=== PATIENT | female | born 1930 | race Caucasian/White ===

== ENCOUNTER 2017-08-13 01:30 | Emergency (ER) | payer MEDICARE, OTHER ==
--- NOTE | 2017-08-13 10:37 | RAD ---
4 VIEWS RIGHT KNEE: Date: 08/13/17 COMPARISON: 07/23/10. HISTORY: Multiple falls, trauma, pain. FINDINGS: There is severe lateral compartment degenerative change with joint space narrowing, subchondral scler osis, and osteophyte formation. There is prominent patellofemoral joint space narrowing as well. No significant knee joint effusion. Bones are demineralized. There is no displaced fracture or evidence of dislocation seen. IMPRESSION: Multicompartment degenerative joint disease. No acute osseous abnormality. POS: [facility]
== END 2017-08-13 03:48 | disposition home or self-care (01) ==
LOC: ERS 01:30
DX: L03.115 Cellulitis of right lower limb (principal); K21.9 Gastro-esophageal reflux disease without esophagitis; E78.5 Hyperlipidemia, unspecified; I10 Essential (primary) hypertension; W19.XXXA Unspecified fall, initial encounter

== ENCOUNTER 2017-08-14 08:54 | Emergency (ER) | payer MEDICARE, OTHER ==
[2017-08-14] MEDS ORDERED: Acetaminophen 500 MG TAB ONE (09:22)
--- NOTE | 2017-08-14 10:01 | CT ---
CT HEAD NONCONTRAST: HISTORY: Fall. Head injury. COMPARISON: 07/23/10. FINDINGS: There is no evidence of acute intracranial hemorrhage or infarct. Diffuse cortical atrophy and chron ic ischemic small-vessel disease are again demonstrated. There is no mass effect or shift of midline structures. Visualized paranasal sinuses remain well aerated with postoperative changes apparent. IMPRESSION: No acute intracranial abnormalities are demonstrated. POS: [facility]
--- NOTE | 2017-08-14 10:15 | CT ---
CT CERVICAL SPINE NONCONTRAST: HISTORY: Fall. Neck injury. FINDINGS: Vertebral body heights are maintained. Multilevel disk space narrowing, osteophytosis, and gas-disk phenomenon, and mild degenerative spondylolistheses are similar in appearance to the previous exam. Cervicothoracic junction is intact. No acute fracture or dislocation. Prominent calcification in th e arterial structures. IMPRESSION: 1. Cervical spondylosis. No acute osseous abnormalities are demonstrated. 2. Atherosclerosis. POS: [facility]
--- NOTE | 2017-08-14 10:19 | CT ---
NONCONTRAST CT THORACIC SPINE: DATE: 08/14/17. HISTORY: The patient tripped and fell while using a walker. The patient complains of back pain and neck pain. FINDINGS: The vertebral body heights are within normal limits. No fracture or subluxation is seen involving th e thoracic spine. There are mild multilevel degenerative changes seen in the thoracic spine. No intradural or extradural defect is appreciated. There is no significant narrowing of the central spinal canal or neural foramina. Vascular calcifications are seen in the thoracic aorta as well as involving the origins of the great vessels. There is mild dependent atelectasis at each lung base. The visualized lungs are otherwise clear. Paravertebral soft tissues are within normal limits. IMPRESSION: 1. Mild degenerative changes in the thoracic spine, but no fracture or subluxation is seen. 2. Small hiatal hernia. 3. Prominent vascular calcifications. POS: [facility]
--- NOTE | 2017-08-14 10:21 | RAD ---
PORTABLE AP CHEST XRAY: DATE: 08/14/17. HISTORY: Trauma. The patient tripped and fell while using a walker. Pain to right shoulder, head, and back o f neck. COMPARISON: 12/14/16. FINDINGS: Cardiac silhouette is mildly enlarged. The pulmonary vasculature is within normal limits. Lungs are clear. Vascular calcifications are seen in the thoracic aorta and do appear more prominent than on the prior exam. There is a linear density overlying the lateral left lung which has the appearance m ost suggestive of a skin fold. Osteopenia is present. No definite fracture is visualized. IMPRESSION: 1. No acute cardiopulmonary process. 2. Mild cardiomegaly. Osteopenia. No obvious fracture is appreciated. POS: [facility]
--- NOTE | 2017-08-14 10:25 | RAD ---
THREE VIEWS RIGHT SHOULDER: THREE VIEWS RIGHT SHOULDER: DATE: 08/14/17. HISTORY: Right shoulder pain after a fall. FINDINGS: Coracoclavicular and acromioclavicular distances are within normal limits. No fracture or dislocatio n is present. Vascular calcification is seen in the thoracic aorta. No other findings. IMPRESSION: No acute osseous abnormality is seen involving the right shoulder. POS: [facility]
--- NOTE | 2017-08-14 10:28 | CT ---
CT LUMBAR SPINE NONCONTRAST: HISTORY: Low back injury. Fall. FINDINGS: There are 5 lumbar-type vertebrae. Leftward convex rotatory scoliotic curvature is apparent. There is disk space narrowing and gas-disk phenomenon at each level with a moderate degree of osteophytosis . Foraminal stenoses are greatest at the L4-5 level where posterior operative decompression is also apparent. Subtle end plate compression at the L4 level is apparent with a Schmorl's node posteriorly . No acute fractures are evident. There is prominent calcification throughout the arterial structures. IMPRESSION: 1. Prominent lumbar spondylosis. Postoperative changes. No acute fractures are apparent. 2. Atherosclerosis. POS: [facility]
== END 2017-08-14 11:00 | disposition home or self-care (01) ==
LOC: ERS 08:54
DX: M25.511 Pain in right shoulder (principal); K21.9 Gastro-esophageal reflux disease without esophagitis; E78.5 Hyperlipidemia, unspecified; E78.00 Pure hypercholesterolemia, unspecified; I10 Essential (primary) hypertension; F03.90 Unspecified dementia, unspecified severity, without behavioral disturbance, psychotic disturbance, mood disturbance, and anxiety; Z79.82 Long term (current) use of aspirin; Z79.899 Other long term (current) drug therapy; W01.0XXA Fall on same level from slipping, tripping and stumbling without subsequent striking against object, initial encounter
CPT/HCPCS: 70450; 71045; 72125; 72128; 72131; 93005

== ENCOUNTER 2017-08-22 06:26 | Emergency (ER) | payer MEDICARE ==
[2017-08-22 07:39] LABS: Bilirubin Negative (Negative); Blood, Urine Negative (Negative); Clarity CLOUDY (Clear); Glucose, Urine (Dipstick) Negative (Negative); Leukocyte Moderate (Negative); Nitrite Positive (Negative); Protein, Urine (Dipstick) Negative (Neg-Trace); Specific Gravity, Urine 1.012 (1.002-1.036); Urobilinogen 0.2 mg/dL (0.2-1.0); pH, Urine 7.5 (5.0-9.0)
[2017-08-22 07:41] LABS: Bacteria/HPF 4+ HPF (None Seen); Hyaline Casts/LPF 4-6 HYALINE CAST LPF (0-3 Hyaline); Pathc Cast-AUWi Flag 0.58 (0-2.49); RBC/HPF 0-3 HPF (0-3); Squamous Epithelial 0-3 HPF (0-3)
--- NOTE | 2017-08-22 07:41 | CT ---
CT BRAIN WITHOUT CONTRAST: Date: 08/22/17 HISTORY: Fall. Dizziness. FINDINGS: Comparison made with exam of 08/13/17. Changes of cortical atrophy and chronic small vessel ischemic disease are again seen. The ventricular size is stable and the basilar cisterns are patent. No evidence of acute infarct, hemorrhage, midlin e shift, or abnormal extra-axial fluid collections are seen. The bony calvarium is intact. Visualized paranasal sinuses are well aerated with postoperative changes. IMPRESSION: Stable exam. No CT evidence of acute intracranial process. POS: [facility]
[2017-08-22 08:12] LABS: #Eosinphils 0.1 thou/uL (0.0-0.7); #Lymphocytes 1.7 thou/uL (1.20-3.40); #Monocytes 0.4 thou/uL (0.11-0.59); #Neutrophils 4.7 thou/uL (1.40-6.50); %Basophils 0.4 % (0.0-1.0); %Eosinophils 0.9 % (0.0-10.0); %Lymphocytes 24.1 % (21.0-51.0); %Monocytes 6.4 % (0.0-10.0); %Neutrophils 68.3 % (42.0-75.0); Hemoglobin 15.3 g/dL (12.0-16.0); Mean Corpuscular HGB CONC 33.6 g/dL (32.0-36.0); Mean Corpuscular Hemoglobin 31.9 pg (27.0-31.0); Mean Platelet Volume 8.6 fL (7.4-10.4); Platelet Count 214 thou/uL (130-400); RBC Distribution Width 12.5 % (11.5-14.5)
--- NOTE | 2017-08-22 08:20 | RAD ---
RIGHT KNEE FOUR VIEWS: History: 87-year-old female with history of right knee pain following a fall from trauma. Dizziness. FINDINGS: Degenerative changes involving all three compartments of the knee. No fracture or dislocation. IMPRESSION: Tricompartment degenerative changes without fracture or dislocation. POS: [facility]
[2017-08-22 08:32] LABS: ALT (SGPT) 13 U/L (8-55); AST (SGOT) 17 U/L (5-34); Albumin 4.4 g/dL (3.4-4.8); Alkaline Phosphatase 84 U/L (40-150); Anion Gap 16 mmol/L (10-20); BUN (Urea Nitrogen) 16 mg/dL (9.8-20.1); Bilirubin, Total 1.3 mg/dL (0.2-1.2); Calc. Creatinine Clearance 0 mL/min (70-130); Calcium 9.6 mg/dL (7.8-10.44); Carbon Dioxide 22 mmol/L (23-31); Chloride 105 mmol/L (98-107); Estimated GFR-MDRD 71; Globulin 2.7 g/dL (2.4-3.5); Glucose 143 mg/dL (83-110); Potassium 3.6 mmol/L (3.5-5.1); Protein, Total 7.1 g/dL (6.0-8.3); Sodium 139 mmol/L (136-145)
--- NOTE | 2017-08-22 08:35 | RAD ---
LEFT KNEE FOUR VIEWS: History: 87-year-old female with history of fall, injury from trauma. Bilateral knee pain and weakness. FINDINGS: There are mild degenerative changes. No fracture or dislocation apparent. IMPRESSION: NO fracture or dislocation. POS: [facility]
--- NOTE | 2017-08-22 08:35 | RAD ---
PORTABLE CHEST 1 VIEW: Date: 08/22/17 Time: 0727 hours HISTORY: Fall. Dizziness. Chest pain. FINDINGS: Comparison made with exam of 08/14/17. The heart size is normal. The aorta is tortuous. Lungs are expanded without focal areas of consolida tion, pneumothoraces, or pleural effusions. IMPRESSION: No acute process. POS: [facility]
[2017-08-22 08:46] LABS: CKMB 2.5 ng/mL (0-6.6); Troponin I Less than 0.010 ng/mL (< 0.028)
== END 2017-08-22 09:35 | disposition home or self-care (01) ==
LOC: ERS 06:26
DX: S80.02XA Contusion of left knee, initial encounter (principal); S80.01XA Contusion of right knee, initial encounter; N39.0 Urinary tract infection, site not specified; R42 Dizziness and giddiness; K21.9 Gastro-esophageal reflux disease without esophagitis; E78.5 Hyperlipidemia, unspecified; I10 Essential (primary) hypertension; F03.90 Unspecified dementia, unspecified severity, without behavioral disturbance, psychotic disturbance, mood disturbance, and anxiety; Z79.82 Long term (current) use of aspirin; Z79.899 Other long term (current) drug therapy
CPT/HCPCS: 70450; 71045; 80053; 81003; 81015; 82553; 84484; 85025; 93005; 96374; J0696

== ENCOUNTER 2017-10-07 19:20 | Emergency (ER) | payer MEDICARE ==
[2017-10-07 20:37] LABS: Bilirubin Negative (Negative); Blood, Urine Negative (Negative); Clarity CLEAR (Clear); Glucose, Urine (Dipstick) Negative (Negative); Leukocyte Small (Negative); Nitrite Negative (Negative); Protein, Urine (Dipstick) Negative (Neg-Trace); Urobilinogen 0.2 mg/dL (0.2-1.0); pH, Urine 6.5 (5.0-9.0)
[2017-10-07 20:38] LABS: Bacteria/HPF None Seen HPF (None Seen); Hyaline Casts/LPF 0-3 HYALINE CAST LPF (0-3 Hyaline); Pathc Cast-AUWi Flag 0.58 (0-2.49); RBC/HPF None Seen HPF (0-3); Squamous Epithelial 0-3 HPF (0-3)
[2017-10-07 20:45] LABS: #Eosinphils 0.1 thou/uL (0.0-0.7); #Lymphocytes 2.1 thou/uL (1.20-3.40); #Monocytes 0.6 thou/uL (0.11-0.59); %Basophils 0.6 % (0.0-1.0); %Eosinophils 1.7 % (0.0-10.0); %Lymphocytes 30.1 % (21.0-51.0); %Monocytes 9.2 % (0.0-10.0); %Neutrophils 58.4 % (42.0-75.0); Hemoglobin 14.6 g/dL (12.0-16.0); Mean Corpuscular HGB CONC 34.4 g/dL (32.0-36.0); Mean Corpuscular Hemoglobin 32.5 pg (27.0-31.0); Mean Corpuscular Volume 94.4 fl (81.0-99.0); Platelet Count 186 thou/uL (130-400); RBC Distribution Width 12.3 % (11.5-14.5); Red Blood Cell (RBC) Count 4.48 mill/uL (4.20-5.40); White Blood Cell (WBC) Count 6.9 thou/uL (4.8-10.8)
[2017-10-07 20:54] LABS: ALT (SGPT) 16 U/L (8-55); AST (SGOT) 23 U/L (5-34); Albumin 4.1 g/dL (3.4-4.8); Alkaline Phosphatase 73 U/L (40-150); Anion Gap 13 mmol/L (10-20); BUN (Urea Nitrogen) 19 mg/dL (9.8-20.1); Calc. Creatinine Clearance 0 mL/min (70-130); Calcium 9.7 mg/dL (7.8-10.44); Carbon Dioxide 26 mmol/L (23-31); Chloride 103 mmol/L (98-107); Estimated GFR-MDRD 60; Globulin 2.5 g/dL (2.4-3.5); Glucose 132 mg/dL (83-110); Potassium 3.4 mmol/L (3.5-5.1); Protein, Total 6.6 g/dL (6.0-8.3); Sodium 139 mmol/L (136-145)
--- NOTE | 2017-10-07 21:35 | CT ---
HEAD CT WITHOUT CONTRAST 10/07/17 COMPARISON: None. HISTORY: Headaches and altered mental status. TECHNIQUE: Serial axial CT imaging at 5 mm intervals from vertex through skull base without contrast. FINDINGS: Imaged paranasal sinuses and mastoid air cells are clear. There is evidence of prior bilateral ethmoi dectomy. There is mild diffuse cerebral volume loss. There is extensive periventricular white matter hypodensity, evidence of significant stable small vessel disease. No intracranial hemorrhage, midline shift or mass effect. IMPRESSION: Chronic findings as above. No acute findings are seen. POS: [facility]
== END 2017-10-07 22:53 | disposition home or self-care (01) ==
LOC: ERS 19:20
DX: N39.0 Urinary tract infection, site not specified (principal); R19.7 Diarrhea, unspecified; K21.9 Gastro-esophageal reflux disease without esophagitis; E78.5 Hyperlipidemia, unspecified; I10 Essential (primary) hypertension; F03.90 Unspecified dementia, unspecified severity, without behavioral disturbance, psychotic disturbance, mood disturbance, and anxiety; Z79.82 Long term (current) use of aspirin; Z79.899 Other long term (current) drug therapy
CPT/HCPCS: 36415; 70450; 80053; 81003; 81015; 82274; 85025; 87086

== ENCOUNTER 2017-10-26 09:15 | Emergency (ER) | payer MEDICARE ==
[2017-10-26] MEDS ORDERED: Lisinopril 10 MG TAB ONE (10:30)
[2017-10-26] MEDS ORDERED: Hydrochlorothiazide 25 MG TAB PO SCH (10:45)
[2017-10-26 10:46] LABS: Bilirubin Negative (Negative); Blood, Urine Negative (Negative); Clarity CLOUDY (Clear); Glucose, Urine (Dipstick) Negative (Negative); Leukocyte Trace (Negative); Nitrite Negative (Negative); Protein, Urine (Dipstick) Negative (Neg-Trace); Specific Gravity, Urine 1.013 (1.002-1.036); Urobilinogen 0.2 mg/dL (0.2-1.0)
[2017-10-26 10:48] LABS: Bacteria/HPF None Seen HPF (None Seen); Hyaline Casts/LPF 0-3 HYALINE CAST LPF (0-3 Hyaline); Pathc Cast-AUWi Flag 0.14 (0-2.49); Squamous Epithelial 0-3 HPF (0-3); WBC/HPF 0-3 HPF (0-3)
--- NOTE | 2017-10-26 11:00 | CT ---
CT OF THE BRAIN WITHOUT CONTRAST: Date: 10/26/17 COMPARISON: 10/07/17. HISTORY: Altered mental status. TECHNIQUE: Multiple contiguous axial images were obtained in a CT of the brain without contrast. FINDINGS: There are scattered hypodensities in the subcortical and periventricular white matter, likely seconda ry to small vessel ischemic disease. No large confluent infarction is seen. There is no evidence of h ydrocephalus, intracranial hemorrhage, or extra-axial fluid collection. The calvarium and overlying soft tissues are unremarkable. The visualized paranasal sinuses and masto id air cells are well aerated. IMPRESSION: No evidence of acute intracranial abnormality. POS: [facility]
[2017-10-26 12:37] LABS: #Eosinphils 0.3 thou/uL (0.0-0.7); #Lymphocytes 2.3 thou/uL (1.20-3.40); #Monocytes 0.9 thou/uL (0.11-0.59); #Neutrophils 6.7 thou/uL (1.40-6.50); %Basophils 0.3 % (0.0-1.0); %Eosinophils 2.7 % (0.0-10.0); %Lymphocytes 22.8 % (21.0-51.0); %Monocytes 8.5 % (0.0-10.0); %Neutrophils 65.7 % (42.0-75.0); Hemoglobin 16.2 g/dL (12.0-16.0); Mean Corpuscular HGB CONC 32.5 g/dL (32.0-36.0); Mean Corpuscular Hemoglobin 30.5 pg (27.0-31.0); Mean Corpuscular Volume 93.9 fL (78.0-98.0); Platelet Count 173 thou/uL (130-400); RBC Distribution Width 12.2 % (11.5-14.5); White Blood Cell (WBC) Count 10.2 thou/uL (4.8-10.8)
[2017-10-26 12:58] LABS: ALT (SGPT) 27 U/L (8-55); AST (SGOT) 28 U/L (5-34); Albumin 4.4 g/dL (3.4-4.8); Alkaline Phosphatase 106 U/L (40-150); Anion Gap 16 mmol/L (10-20); BUN (Urea Nitrogen) 14 mg/dL (9.8-20.1); Bilirubin, Total 1.9 mg/dL (0.2-1.2); CK (CPK) 131 U/L (29-168); Calc. Creatinine Clearance 0 mL/min (70-130); Calcium 9.9 mg/dL (7.8-10.44); Carbon Dioxide 23 mmol/L (23-31); Chloride 103 mmol/L (98-107); Estimated GFR-MDRD 74; Globulin 2.9 g/dL (2.4-3.5); Glucose 118 mg/dL (83-110); Potassium 3.4 mmol/L (3.5-5.1); Protein, Total 7.3 g/dL (6.0-8.3); Sodium 139 mmol/L (136-145)
--- NOTE | 2017-10-28 14:24 | EKG ---
Test Reason : Blood Pressure : / mmHG Vent. Rate : 066 BPM Atrial Rate : 066 BPM P-R Int : 164 ms QRS Dur : 082 ms QT Int : 432 ms P-R-T Axes : 054 -17 044 degrees QTc Int : 452 ms Normal sinus rhythm Normal ECG Confirmed by PAUL BRICE ([id number]), news editor KRISTIE WERNER ([id number]) on 10/28/2017 2:24:17 PM Referred By: Confirmed By:PAUL BRICE
== END 2017-10-26 15:58 | disposition home or self-care (01) ==
LOC: ERS 09:15
DX: F03.90 Unspecified dementia, unspecified severity, without behavioral disturbance, psychotic disturbance, mood disturbance, and anxiety (principal); R42 Dizziness and giddiness; M79.604 Pain in right leg; M79.605 Pain in left leg; K21.9 Gastro-esophageal reflux disease without esophagitis; I10 Essential (primary) hypertension; E78.5 Hyperlipidemia, unspecified; Z79.82 Long term (current) use of aspirin; Z79.899 Other long term (current) drug therapy
CPT/HCPCS: 36415; 70450; 80053; 81003; 81015; 82550; 85025; 93005

== ENCOUNTER 2017-11-01 21:54 | Emergency (ER) | payer MEDICARE ==
[2017-11-01 22:34] LABS: Bilirubin Negative (Negative); Blood, Urine Negative (Negative); Clarity CLEAR (Clear); Glucose, Urine (Dipstick) Negative (Negative); Leukocyte Moderate (Negative); Nitrite Negative (Negative); Protein, Urine (Dipstick) Negative (Neg-Trace); Specific Gravity, Urine 1.003 (1.002-1.036); pH, Urine 7.5 (5.0-9.0)
[2017-11-01 22:36] LABS: Bacteria/HPF None Seen HPF (None Seen); Hyaline Casts/LPF 0-3 HYALINE CAST LPF (0-3 Hyaline); RBC/HPF 0-3 HPF (0-3); Squamous Epithelial 0-3 HPF (0-3); WBC/HPF 0-3 HPF (0-3)
== END 2017-11-02 00:16 ==
LOC: ERS 21:54
DX: I10 Essential (primary) hypertension (principal); K21.9 Gastro-esophageal reflux disease without esophagitis; E78.5 Hyperlipidemia, unspecified; F03.90 Unspecified dementia, unspecified severity, without behavioral disturbance, psychotic disturbance, mood disturbance, and anxiety; Z79.82 Long term (current) use of aspirin; Z79.899 Other long term (current) drug therapy
CPT/HCPCS: 81003; 81015; 99285

== ENCOUNTER 2017-12-24 19:50 | Emergency (ER) | payer MEDICARE ==
[2017-12-24 20:55] LABS: #Basophils 0.1 thou/uL (0.0-0.2); #Eosinphils 0.1 thou/uL (0.0-0.7); #Lymphocytes 2.3 thou/uL (1.20-3.40); #Monocytes 0.7 thou/uL (0.11-0.59); #Neutrophils 8.1 thou/uL (1.40-6.50); %Basophils 0.6 % (0.0-1.0); %Eosinophils 0.8 % (0.0-10.0); %Lymphocytes 20.7 % (21.0-51.0); %Monocytes 6.5 % (0.0-10.0); %Neutrophils 71.4 % (42.0-75.0); Hemoglobin 13.4 g/dL (12.0-16.0); Mean Corpuscular HGB CONC 35.1 g/dL (32.0-36.0); Mean Platelet Volume 8.9 fL (7.4-10.4); Platelet Count 179 thou/uL (130-400); RBC Distribution Width 12.6 % (11.5-14.5); Red Blood Cell (RBC) Count 4.05 mill/uL (4.20-5.40); White Blood Cell (WBC) Count 11.3 thou/uL (4.8-10.8)
[2017-12-24 21:02] LABS: Bilirubin Negative (Negative); Blood, Urine Trace (Negative); Clarity CLOUDY (Clear); Glucose, Urine (Dipstick) Negative (Negative); Leukocyte Large (Negative); Nitrite Negative (Negative); Protein, Urine (Dipstick) Negative (Neg-Trace); Specific Gravity, Urine 1.011 (1.002-1.036); Urobilinogen 0.2 mg/dL (0.2-1.0); pH, Urine 7.5 (5.0-9.0)
[2017-12-24 21:04] LABS: Bacteria/HPF None Seen HPF (None Seen)
[2017-12-24 21:11] LABS: WBC/HPF 21-50 HPF (0-3); Yeast-All Forms None Seen HPF (None Seen)
[2017-12-24 21:12] LABS: Hyaline Casts/LPF 0-3 HYALINE CAST LPF (0-3 Hyaline)
[2017-12-24 21:17] LABS: ALT (SGPT) 28 U/L (8-55); AST (SGOT) 24 U/L (5-34); Alkaline Phosphatase 80 U/L (40-150); Anion Gap 12 mmol/L (10-20); BUN (Urea Nitrogen) 15 mg/dL (9.8-20.1); Bilirubin, Total 1.6 mg/dL (0.2-1.2); Calc. Creatinine Clearance 0 mL/min (70-130); Calcium 9.6 mg/dL (7.8-10.44); Carbon Dioxide 26 mmol/L (23-31); Chloride 102 mmol/L (98-107); Estimated GFR-MDRD 61; Globulin 2.6 g/dL (2.4-3.5); Glucose 147 mg/dL (83-110); Magnesium 2.2 mg/dL (1.6-2.6); Potassium 3.1 mmol/L (3.5-5.1); Protein, Total 6.6 g/dL (6.0-8.3); Sodium 137 mmol/L (136-145)
== END 2017-12-24 22:29 | disposition home or self-care (01) ==
LOC: ERS 19:50
DX: R19.7 Diarrhea, unspecified (principal); N39.0 Urinary tract infection, site not specified; K21.9 Gastro-esophageal reflux disease without esophagitis; E78.5 Hyperlipidemia, unspecified; I10 Essential (primary) hypertension; F03.90 Unspecified dementia, unspecified severity, without behavioral disturbance, psychotic disturbance, mood disturbance, and anxiety; Z79.82 Long term (current) use of aspirin; Z79.899 Other long term (current) drug therapy
CPT/HCPCS: 80053; 81003; 81015; 83735; 85025; 87086; 96360

== ENCOUNTER 2018-05-24 18:22 | Observation (INO) | payer MEDICARE ==
[2018-05-24] MEDS ORDERED: Nitroglycerin 2% Ointment 1 INCH/1 GM Packet ONE (18:51)
[2018-05-24 19:27] LABS: #Basophils 0.1 thou/uL (0.0-0.2); #Eosinphils 0.3 thou/uL (0.0-0.7); #Lymphocytes 3.3 thou/uL (1.20-3.40); #Monocytes 0.8 thou/uL (0.11-0.59); %Basophils 1.3 % (0.0-1.0); %Eosinophils 3.6 % (0.0-10.0); %Lymphocytes 44.2 % (21.0-51.0); %Monocytes 10.7 % (0.0-10.0); %Neutrophils 40.2 % (42.0-75.0); Hemoglobin 14.2 g/dL (12.0-16.0); Mean Corpuscular HGB CONC 33.4 g/dL (32.0-36.0); Mean Corpuscular Hemoglobin 32.1 pg (27.0-31.0); Mean Corpuscular Volume 96.3 fL (78.0-98.0); Platelet Count 214 thou/uL (130-400); RBC Distribution Width 12.5 % (11.5-14.5); Red Blood Cell (RBC) Count 4.43 mill/uL (4.20-5.40); White Blood Cell (WBC) Count 7.5 thou/uL (4.8-10.8)
[2018-05-24 19:46] LABS: ALT (SGPT) 24 U/L (8-55); AST (SGOT) 28 U/L (5-34); Albumin 4.3 g/dL (3.4-4.8); Alkaline Phosphatase 56 U/L (40-150); Anion Gap 14 mmol/L (10-20); BUN (Urea Nitrogen) 18 mg/dL (9.8-20.1); Bilirubin, Total 1.2 mg/dL (0.2-1.2); CK (CPK) 134 U/L (29-168); Calc. Creatinine Clearance 0 mL/min (70-130); Calcium 10.1 mg/dL (7.8-10.44); Carbon Dioxide 27 mmol/L (23-31); Chloride 101 mmol/L (98-107); Estimated GFR-MDRD 49; Globulin 2.6 g/dL (2.4-3.5); Glucose 134 mg/dL (83-110); Lipase 30 U/L (8-78); Potassium 3.2 mmol/L (3.5-5.1); Protein, Total 6.9 g/dL (6.0-8.3); Sodium 139 mmol/L (136-145)
--- NOTE | 2018-05-24 19:46 | RAD ---
FRONTAL VIEW CHEST: 05/24/18 COMPARISON: 08/22/17. INDICATION: Chest pain. FINDINGS: No evidence of consolidation, effusion or pneumothorax. The cardiac silhouette is accentuated by port able technique. There is vascular calcification. Leads overlie the chest limiting visualization. IMPRESSION: No focal consolidation. POS: [facility]
--- NOTE | 2018-05-24 20:07 | PDOC.FPRHP ---
- History of Present Illness Chief Complaint: Chest pain History of Present Illness: 87 yo F in assisted living with PMH of CAD with stent placed in 2007 presents for L sided chest pain that started around 10 AM this morning. Patient reports pain is like pressure, left sided, non-radiating. Pain is exertional, started when she was walking down the hallway to dinner and has resolved with rest, ASA , and nitro paste. Associated with nausea and diaphoresis. Patient has had a recent viral URI with some lingering symptoms of cough and sore throat. On exam , patient has reproducible tenderness over left breast, but patient reports this pain is different from the pain she had earlier. Patient received nitropaste, ASA 324 in ambulance. CXR normal, initial trop negative. EKG showed NSR. - Allergies/Adverse Reactions Allergies Allergy/AdvReac Type Severity Reaction Status Date / Time codeine Allergy Verified 05/24/18 22:08 onion Allergy Verified 05/24/18 22:35 - Home Medications Medication Instructions Recorded Confirmed Type Levothyroxine Sodium 25 mcg PO DAILY 12/14/16 05/24/18 History Oxybutynin ER [Ditropan XL] 5 mg PO BID 12/14/16 05/24/18 History Pantoprazole Sodium 40 mg PO BID 12/14/16 05/24/18 History Atorvastatin Calcium [Lipitor] 40 mg PO HS #30 tab 12/15/16 05/24/18 Rx Aspirin Chewable 81 mg PO DAILY 05/24/18 05/24/18 History Escitalopram Oxalate [Lexapro] 10 mg PO DAILY 05/24/18 05/24/18 History Hydrochlorothiazide 50 mg PO DAILY 05/24/18 05/24/18 History Ibuprofen 600 mg PO TID PRN 05/24/18 05/24/18 History Lisinopril [Zestril] 30 mg PO DAILY 05/24/18 05/24/18 History Loperamide HCl [Imodium A-D] 2 mg PO PRN PRN 05/24/18 05/24/18 History Multivitamin [One Daily 1 tab PO DAILY 05/24/18 05/24/18 History Multivitamin] Ondansetron HCl [Zofran] 4 mg PO DAILY 05/24/18 05/24/18 History clonazePAM [Klonopin] 0.5 mg PO HS PRN 05/24/18 05/24/18 History hydrALAZINE [Apresoline] 25 mg PO Q8H PRN 05/24/18 05/24/18 History - History PMHx: dementia, CAD s/p stent placement, HTN, hypothyroidism, Gerd, depression, urge incontinence, constipation PSHx: Cardiac stent in 2007, ankle surgery bilat, hysterectomy and oopherectomy , appendectomy as a child, back surgery, cataract surgery FHx: non contributory Social: Denies tobacco or illicit drug use. Very occasional alcohol use. Patient lives in an assisted living home. - Review of Systems General: denies: fever/chills, weight/appetite/sleep changes Eyes: denies: eye pain, vision changes ENT: reports: rhinorrhea, other (sore throat). denies: nasal congestion Respiratory: reports: cough. denies: congestion, shortness of breath Cardiovascular: reports: chest pain, edema (ankles). denies: palpitation Gastrointestinal: reports: nausea, constipation, abdominal pain. denies: vomiting, diarrhea, GI bleeding Genitourinary: reports: incontinence. denies: dysuria Skin: denies: rashes, lesions Musculoskeletal: denies: tenderness, swelling Neurological: reports: numbness (bilateral feet, not new). 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, patient reports previous history of cataract surgery), MMM, oropharynx clear, other ( hearing impaired) Neck: supple, other (+LAD) Chest: no lesions, other (Tender to palpation over sternum and left breast, reproducible) Heart: RRR, normal S1/S2, no murmurs/rubs/gallops, pulses present, no edema Lungs: CTAB, no respiratory distress, good air movement Abdomen: soft, non-tender, bowel sounds present, no masses/distention Musculoskeletal: normal structure, normal tone Neurological: no focal deficit, CN II-XII intact Skin: no rash/lesions, good turgor Heme/Lymphatic: no unusual bruising or bleeding, no purpura Psychiatric: normal mood and affect, good judgment and insight, other (fairly good memory) FMR H&P: Results - Labs Result Diagrams: 05/24/18 19:16 05/24/18 19:16 Lab results: WBC 7.5 thou/uL (4.8-10.8) 05/24/18 19:16 Hgb 14.2 g/dL (12.0-16.0) 05/24/18 19:16 Hct 42.6 % (36.0-47.0) 05/24/18 19:16 MCV 96.3 fL (78.0-98.0) 05/24/18 19:16 Plt Count 214 thou/uL (130-400) 05/24/18 19:16 Neutrophils % 40.2 % (42.0-75.0) L 05/24/18 19:16 Sodium 139 mmol/L (136-145) 05/24/18 19:16 Potassium 3.2 mmol/L (3.5-5.1) L 05/24/18 19:16 Chloride 101 mmol/L (98-107) 05/24/18 19:16 Carbon Dioxide 27 mmol/L (23-31) 05/24/18 19:16 BUN 18 mg/dL (9.8-20.1) 05/24/18 19:16 Creatinine 1.06 mg/dL (0.6-1.1) 05/24/18 19:16 Glucose 134 mg/dL (83-110) H 05/24/18 19:16 Calcium 10.1 mg/dL (7.8-10.44) 05/24/18 19:16 Total Bilirubin 1.2 mg/dL (0.2-1.2) 05/24/18 19:16 AST 28 U/L (5-34) 05/24/18 19:16 ALT 24 U/L (8-55) 05/24/18 19:16 Alkaline Phosphatase 56 U/L (40-150) 05/24/18 19:16 Creatine Kinase 134 U/L (29-168) 05/24/18 19:16 Serum Total Protein 6.9 g/dL (6.0-8.3) 05/24/18 19:16 Albumin 4.3 g/dL (3.4-4.8) 05/24/18 19:16 Lipase 30 U/L (8-78) 05/24/18 19:16 - EKG Interpretation EKG: EKG NSR - Radiology Interpretation Chest x-ray Additional comment: Normal FMR H&P: A/P - Problem List (1) Chest pain Current Visit: Yes Status: Acute Code(s): R07.9 - CHEST PAIN, UNSPECIFIED (2) CAD (coronary artery disease) Current Visit: Yes Status: Chronic Code(s): I25.10 - ATHSCL HEART DISEASE OF [place] CORONARY ARTERY W/O ANG PCTRS (3) Hypokalemia Current Visit: Yes Status: Acute Code(s): E87.6 - HYPOKALEMIA (4) GERD (gastroesophageal reflux disease) Current Visit: Yes Status: Chronic Code(s): K21.9 - GASTRO-ESOPHAGEAL REFLUX DISEASE WITHOUT ESOPHAGITIS (5) Dementia Current Visit: Yes Status: Chronic Code(s): F03.90 - UNSPECIFIED DEMENTIA WITHOUT BEHAVIORAL DISTURBANCE (6) Depression Current Visit: Yes Status: Chronic Code(s): F32.9 - MAJOR DEPRESSIVE DISORDER, SINGLE EPISODE, UNSPECIFIED (7) HTN (hypertension) Current Visit: Yes Status: Chronic Code(s): I10 - ESSENTIAL (PRIMARY) HYPERTENSION (8) Hypothyroidism Current Visit: Yes Status: Chronic Code(s): E03.9 - HYPOTHYROIDISM, UNSPECIFIED (9) Urge incontinence Current Visit: Yes Status: Chronic Code(s): N39.41 - URGE INCONTINENCE (10) Constipation Current Visit: Yes Status: Chronic Code(s): K59.00 - CONSTIPATION, UNSPECIFIED - Plan Typical chest pain, ACS r/o -ACS vs GERD vs anxiety vs costochodritis -Exertional, improved with nitro/ASA, substernal and left sided pressure; has reproducible pain however states that is a different pain from what she felt earlier -Heart score of 6 -Hx of previous stent placement -Trop negx1, CXR and EKG WNL -Stress test in AM -hold any beta blockers, NPO @ midnight -Continue to monitor vitals Hypokalemia -Monitor and replace as needed GERD Dementia -continue home meds Depression -continue home meds HTN -Continue home meds, any beta blockers held Hypothyroidism -continue levothyroxine Urge incontinence -continue oxybutynin Constipation -added PRN constipation meds DVT Ppx: lovenox Diet: NPO @ midnight Code status: DNAR FMR H&P: Upper Level - Pertinent history Rizwana Sage is an 87 year old female with a history of CAD who presents to the ED with intermittent substernal squeezing pain associated with nausea. Pt states that her pain feels like heartburn. She denies dyspnea, radiation, and exertional component to her pain. She states that this pain has been ongoing for a long time, but she was unable to quantify how long exactly. She states that this pain has been improved with Tums. - Pertinent findings Vitals: BP: 162/71 P: 85 RR:20 T: 98.1 O2: 97% on RA Exam: General: alert and oriented x 3 Heart: RRR, no murmurs, rubs, or gallops; reproducible chest wall tenderness to palpation Lungs: clear to auscultation bilaterally. Trops negative x 1 EKG - NSR, with no evidence of ischemia - Plan Date/Time: 05/24/182006 I, Ashwini Amaya, have evaluated this patient and agree with findings/plan as outlined by development intern resident. Pertinent changes/additions are listed here. Chest pain, ACS rule out - will admit pt to telemetry for observation. - chest pain sounds atypical in nature (GERD or MSK), but given pt's past history of CAD and heart score of 4, will perform pharm stress test. - will trend troponins. - NPO after midnight. - Nitro prn. - ASA, statin GERD - resume home meds Dementia - resume home meds. Hypertension - resume home meds Depression - resume home meds Disposition: stable, no likely greater than 2 midnights. DVT ppx: Lovenox Addendum - Attending - Attending Attestation Date/Time: 05/25/18 0101 I personally evaluated the patient and discussed the management with Dr. Sneed I agree with the History, Examination, Assessment and Plan documented above with any addition or exceptions noted below.Admit r/o ACS plan stress test in am she is stable currently and chest pain free note prior PTCA with Stent to LAD in 2008 Dr Ford here at [facility].
[2018-05-24] MEDS ORDERED: hydrALAZINE 20 MG/ML VIAL SLOW IVP PRN (21:16)
[2018-05-24] MEDS ORDERED: Acetaminophen 650 MG Suppository PR PRN (21:55)
[2018-05-24] MEDS ORDERED: Senokot S 8.6-50 MG TAB PO PRN (21:55)
[2018-05-24] MEDS ORDERED: Ondansetron PF 4 MG/2 ML Vial IVP PRN (21:55)
[2018-05-24] MEDS ORDERED: Acetaminophen 325 MG TAB PO PRN (21:55)
[2018-05-24] MEDS ORDERED: Ondansetron ODT 4 MG TAB PO PRN (21:55)
[2018-05-24] MEDS ORDERED: Potassium Chloride 20 MEQ TAB PO SCH (22:00)
[2018-05-24] MEDS ORDERED: Heparin 5,000 UNITS/ML VIAL SC SCH (22:15)
[2018-05-24 22:38] VITALS: BMI 24.2
[2018-05-24 22:57] LABS: Troponin I Less than 0.010 ng/mL (< 0.028)
[2018-05-24 23:35] LABS: Magnesium 2.3 mg/dL (1.6-2.6); Phosphorus 2.9 mg/dL (2.3-4.7)
[2018-05-25 01:48] LABS: Troponin I Less than 0.010 ng/mL (< 0.028)
[2018-05-25 06:01] LABS: Anion Gap 13 mmol/L (10-20); BUN (Urea Nitrogen) 17 mg/dL (9.8-20.1); Calc. Creatinine Clearance 43 mL/min (70-130); Calcium 9.2 mg/dL (7.8-10.44); Carbon Dioxide 27 mmol/L (23-31); Chloride 104 mmol/L (98-107); Estimated GFR-MDRD 62; Glucose 138 mg/dL (83-110); Potassium 3.8 mmol/L (3.5-5.1); Sodium 140 mmol/L (136-145)
--- NOTE | 2018-05-25 06:50 | PDOC.FM ---
- Subjective Subjective: Ms. Sage is resting comfortably in bed, she reports no chest pain or SOB. Spoke at length about stress test and possible cath including risks and benefits , acknowledging pt autonomy. pt wishes to proceed. - Objective Vital Signs & Weight: Vital Signs (12 hours) Temp Pulse Resp BP BP Pulse Ox 05/25/18 03:01 97.9 F 65 14 155/70 H 98 05/24/18 21:55 98.0 F 74 15 149/68 H 97 Weight Weight 62.097 kg Result Diagrams: 05/24/18 19:16 05/25/18 05:27 Phys Exam - Physical Examination Constitutional: NAD HEENT: moist MMs Neck: no JVD Respiratory: clear to auscultation bilateral Cardiovascular: RRR, no significant murmur Gastrointestinal: no distention Musculoskeletal: no edema, pulses present Neurological: moves all 4 limbs word finding difficulty at baseline Psychiatric: normal affect Skin: no rash Dx/Plan (1) Chest pain Code(s): R07.9 - CHEST PAIN, UNSPECIFIED Status: Acute (2) CAD (coronary artery disease) Code(s): I25.10 - ATHSCL HEART DISEASE OF [place] CORONARY ARTERY W/O ANG PCTRS Status: Chronic (3) Dementia Code(s): F03.90 - UNSPECIFIED DEMENTIA WITHOUT BEHAVIORAL DISTURBANCE Status: Chronic (4) Depression Code(s): F32.9 - MAJOR DEPRESSIVE DISORDER, SINGLE EPISODE, UNSPECIFIED Status : Chronic (5) GERD (gastroesophageal reflux disease) Code(s): K21.9 - GASTRO-ESOPHAGEAL REFLUX DISEASE WITHOUT ESOPHAGITIS Status: Chronic (6) HTN (hypertension) Code(s): I10 - ESSENTIAL (PRIMARY) HYPERTENSION Status: Chronic (7) Hypothyroidism Code(s): E03.9 - HYPOTHYROIDISM, UNSPECIFIED Status: Chronic (8) Headache Code(s): R51 - HEADACHE Status: Resolved - Plan Plan: Typical chest pain, ACS r/o -ACS vs GERD vs anxiety vs costochodritis -Exertional, improved with nitro/ASA, substernal and left sided pressure; has reproducible pain however states that is a different pain from what she felt earlier -Hx of previous stent placement - TSH, mag, and phos -Trop negx3, CXR and EKG WNL -Stress test today, Continue to monitor vitals Hypokalemia -Monitor and replace as needed GERD Dementia -continue home meds Depression -continue home meds HTN -Continue home meds, any beta blockers held Hypothyroidism -continue levothyroxine Urge incontinence -continue oxybutynin Constipation -added PRN constipation meds DVT Ppx: lovenox Diet: after stress Code status: DNAR Dispo: possible DC home with neg stress
[2018-05-25] MEDS ORDERED: Ibuprofen 600 MG TAB PO PRN (07:31)
[2018-05-25] MEDS ORDERED: hydrALAZINE 25 MG TAB PO PRN (07:31)
[2018-05-25 08:21] VITALS: TEMP 98.1
[2018-05-25] MEDS ORDERED: Non-Formulary Item 1 EACH (Hydrochlorothiazide [Hydrochlorothiazide] 50 MG) PO SCH (09:00)
[2018-05-25] MEDS ORDERED: Levothyroxine Sodium 25 MCG TAB PO SCH (09:00)
[2018-05-25] MEDS ORDERED: Escitalopram Oxalate 10 mg Tablet PO SCH (09:00)
[2018-05-25] MEDS ORDERED: Multivit, Therapeutic 1 TAB PO SCH (09:00)
[2018-05-25] MEDS ORDERED: Oxybutynin ER 5 MG TAB PO SCH (09:00)
[2018-05-25] MEDS ORDERED: LISINOPRIL 30 MG PO SCH (09:00)
[2018-05-25] MEDS ORDERED: MULTIVITAMIN PO SCH (09:00)
[2018-05-25] MEDS ORDERED: Enoxaparin Sodium 40 MG/0.4 ML SYRINGE SC SCH (09:00)
[2018-05-25] MEDS ORDERED: Hydrochlorothiazide 25 MG TAB PO SCH (09:00)
[2018-05-25] MEDS ORDERED: Aspirin Chewable 81 MG TAB PO SCH (09:00)
[2018-05-25] MEDS ORDERED: Lisinopril 10 MG TAB PO SCH (09:00)
[2018-05-25] MEDS: Heparin 5,000 UNITS/ML VIAL SC SCH ×2 (09:38→16:10)
[2018-05-25] MEDS ORDERED: ADENOSINE 60 MG/20 ML VIAL ONE (13:18)
--- NOTE | 2018-05-25 15:09 | NM ---
CARDIAC SPECT: CLINICAL HISTORY: 87-year-old female with chest pain, coronary artery disease, stent placement, hypertension, and dysli pidemia. TECHNIQUE: A myocardial perfusion scan was performed using the single isotope one day protocol with technetium-9 9m sestamibi. 10 mCi were injected intravenously for the rest exam followed by 31 mCi for the stress exam. Pharmacologic stress with Adenosine was monitored and interpreted by Dionicio Benz. FINDINGS: There is fairly homogeneous tracer distribution is seen in the myocardial segments on stress and rest images without fixed or reversible defects. The left ventricular cavity appears larger on stress com pared to rest with a TID ratio of 1.55. GATED SPECT LVEF: 79%. WALL MOTION EXAM: Normal. IMPRESSION: TID ratio is 1.55. Clinical correlation is recommended. POS: [facility]
[2018-05-25 19:03] VITALS: BP 120/59
[2018-05-25] MEDS ORDERED: Atorvastatin Calcium 40 MG TAB PO SCH (21:00)
--- NOTE | 2018-05-28 12:37 | DIS ---
DATE OF ADMISSION: 05/24/2018 DATE OF DISCHARGE: 05/25/2018 RESIDENT: Mj May DO ADMITTING ATTENDING: Gatito Florez MD DISCHARGE ATTENDING: Madison Leora MD CONSULTS: None. PROCEDURES: None. IMAGING: Nuclear medicine stress test significant for no signs of reversible ischemia. PRIMARY DIAGNOSIS: Typical chest pain, rule out. SECONDARY DIAGNOSES: 1. Hypokalemia. 2. Gastroesophageal reflux disease. 3. Dementia. 4. Depression. 5. Hypertension. 6. Hypothyroidism. 7. Urge incontinence. 8. Constipation. DISCHARGE MEDICATIONS: 1. Oxybutynin extended release 5 mg p.o. b.i.d. 2. Levothyroxine 25 mcg p.o. daily. 3. Pantoprazole 40 mg p.o. b.i.d. 4. Lipitor 40 mg p.o. at bedtime. 5. Zofran 4 mg p.o. daily. 6. Lexapro 10 mg p.o. daily. 7. Aspirin 81 mg p.o. daily. 8. Hydralazine 25 mg p.o. q.8 p.r.n. 9. Klonopin 0.5 mg p.o. at bedtime p.r.n. 10. Multivitamin 1 tab p.o. daily. 11. Loperamide 2 mg p.o. p.r.n. 12. Lisinopril 30 mg p.o. daily. 13. Ibuprofen 600 mg p.o. t.i.d. 14. Hydrochlorothiazide 50 mg p.o. daily. DISCONTINUED MEDICATIONS: None. HISTORY OF PRESENT ILLNESS/HOSPITAL COURSE: Ms. Sage is an 87-year-old female, who presents from Assisted Living with typical substernal chest pain radiating to the left arm, relieved with nitroglycerin and was exertional in nature. She has a past medical history of coronary artery disease with a stent placed in 2007. At that time, she denied palpitations, shortness of breath, cough, or sore throat. She was given Nitropress, 324 of aspirin. Initial troponins were negative. Repeat troponins were negative. EKG was normal sinus rhythm with no changes compared to previous EKGs. The patient was admitted to observation telemetry, completed a cardiac stress test in the morning with negative results for new onset cardiac ischemia. The patient at the beginning of her hospital stay, reported that she would receive a cardiac catheterization if the results from nuclear medicine stress test indicated that. Toward the end of her hospitalization before discharge, she indicated she would not desire cardiac catheterization. The patient's code status is currently DNR/DNI. Risks and benefits of nuclear medicine stress and cardiac cath were discussed with the patient extensively. The patient will follow up with resident physician at the nursing home facility, Dr. Sneed. DISPOSITION: Stable. DISCHARGE INSTRUCTIONS: 1. Location: [facility]. 2. Diet: Heart healthy, low-sodium. 3. Activity: As tolerated. 4. Followup: Follow up with Dr. Sneed in 1 day. Job ID: [id number]
== END 2018-05-25 19:29 ==
LOC: ERS 18:22 → 2SW 20:18
PROVIDERS: ADMIT Family Medicine; ATTEND Family Medicine
DX: R07.89 Other chest pain (principal); E87.6 Hypokalemia; K21.9 Gastro-esophageal reflux disease without esophagitis; F03.90 Unspecified dementia, unspecified severity, without behavioral disturbance, psychotic disturbance, mood disturbance, and anxiety; F32.9 Major depressive disorder, single episode, unspecified; I10 Essential (primary) hypertension; E03.9 Hypothyroidism, unspecified; I25.10 Atherosclerotic heart disease of native coronary artery without angina pectoris; N39.41 Urge incontinence; K59.00 Constipation, unspecified; Z95.5 Presence of coronary angioplasty implant and graft; Z90.710 Acquired absence of both cervix and uterus; Z90.721 Acquired absence of ovaries, unilateral; Z90.49 Acquired absence of other specified parts of digestive tract; Z88.5 Allergy status to narcotic agent; Z91.018 Allergy to other foods; Z79.82 Long term (current) use of aspirin; Z79.899 Other long term (current) drug therapy; Z98.890 Other specified postprocedural states
CPT/HCPCS: 71045; 78452; 80048; 82550; 83690; 83735; 84100; 84484 ×3; 93005; 93017; 94760; 99285; A9500; G0378 ×3; 36415; 80053; 84443; 85025; J0153; J1644; Q0162